=== PATIENT | male | born 1950 | race Caucasian/White ===

== ENCOUNTER 2023-09-26 10:16 | Emergency (ER) | payer OTHER ==
[~2023-09-26] VITALS: Ht 182.9 cm; Wt 74.8 kg
[2023-09-26] MEDS ORDERED: IBUP600 PO (10:23)
[2023-09-26] MEDS ORDERED: ALBU90OI INH (10:23)
[2023-09-26] MEDS ORDERED: Naproxen 250 MG TAB PO ONE (10:35)
[2023-09-26] MEDS ORDERED: NAPR500 PO (10:38)
[2023-09-27] MEDS ORDERED: METPHE5 PO (12:51)
[2023-09-27] MEDS ORDERED: TAMS.4ER PO (12:52)
[2023-09-27] MEDS ORDERED: FINA5 PO (12:52)
[2023-09-27] MEDS ORDERED: LACT PO (12:52)
== END 2023-09-26 11:55 | disposition home or self-care (01) ==
LOC: ER 10:16
DX: M54.50 Low back pain, unspecified (principal); M25.562 Pain in left knee; M25.561 Pain in right knee; F17.200 Nicotine dependence, unspecified, uncomplicated; Z79.1 Long term (current) use of non-steroidal anti-inflammatories (NSAID); Z79.899 Other long term (current) drug therapy
CPT/HCPCS: 99283; A9270

== ENCOUNTER 2023-09-27 12:38 | Emergency (ER) | payer OTHER ==
[~2023-09-27] VITALS: Ht 185.4 cm; Wt 74.8 kg
[~2023-09-27 12:38] MED LIST: ALBU90OI INH; IBUP600 PO; NAPR500 PO
[2023-09-27] MEDS ORDERED: METPHE5 PO (12:51)
[2023-09-27] MEDS ORDERED: LACT PO (12:52)
[2023-09-27] MEDS ORDERED: TAMS.4ER PO (12:52)
[2023-09-27] MEDS ORDERED: FINA5 PO (12:52)
[2023-09-27 13:17] LABS: BASOPHILS ABSOLUTE AUTO 0.01 K/mm3 (0.00-0.23); BASOPHILS PERCENT AUTO 0 % (0-2); EOSINOPHILS ABSOLUTE AUTO 0.06 K/mm3 (0.00-0.68); EOSINOPHILS PERCENT AUTO 1 % (0-6); Hematocrit 38.9 % (37.0-53.0); Hemoglobin 13.8 g/dL (13.5-17.5); IMMATURE GRAN ABSOLUTE AUTO 0.02 K/mm3 (0.00-0.10); IMMATURE GRAN PERCENT AUTO 0 % (0-1); LYMPHOCYTES ABSOLUTE AUTO 1.54 K/mm3 (0.84-5.20); LYMPHOCYTES PERCENT AUTO 25 % (21-46); MONOCYTES ABSOLUTE AUTO 0.36 K/mm3 (0.16-1.47); MONOCYTES PERCENT AUTO 6 % (4-13); Mean Corpuscular HGB 33.7 pg (26.0-34.0); Mean Corpuscular HGB Conc 35.5 g/dL (31.5-36.5); Mean Corpuscular Volume 95 fL (80-100); Mean Platelet Volume 10.5 fL (9.1-12.4); NEUTROPHILS ABSOLUTE AUTO 4.14 K/mm3 (1.96-9.15); NEUTROPHILS PERCENT AUTO 68 % (41-73); Platelet Count 135 K/mm3 (150-400); RDW Coefficient Variation 12.8 % (11.7-14.2); RDW Standard Deviation 44.8 fL (35.1-46.3); Red Blood Cell Count 4.09 M/mm3 (4.30-5.90); White Blood Cell Count 6.13 K/mm3 (4.00-11.30)
[2023-09-27 13:44] LABS: Albumin, Blood 3.3 g/dL (3.4-5.0); Albumin/Globulin Ratio 1.2 (0.8-1.8); Bilirubin, Total 0.5 mg/dL (0.1-1.0); Bun/Creatinine Ratio 23.7 (12.0-20.0); Creatinine, Blood 0.76 mg/dL (0.60-1.20); Globulin, Blood 2.8 g/dL (2.2-4.0); Potassium, Blood 3.6 mmol/L (3.5-5.5); Total Protein, Blood 6.1 g/dL (6.4-8.2)
== END 2023-09-27 14:58 | disposition home or self-care (01) ==
LOC: ER 12:38
PROVIDERS: Student in an Organized Health Care Education/Training Program
DX: I95.1 Orthostatic hypotension (principal); J44.9 Chronic obstructive pulmonary disease, unspecified; Z79.899 Other long term (current) drug therapy
CPT/HCPCS: 71045; 80053; 84484; 85025; 93005; 93010; 99285-25